=== PATIENT | female | born 1955 | race Caucasian/White ===

== ENCOUNTER → 2017-12-29 | Outpatient (CLI) | payer BC ==
[~2017-12-29] MED LIST: AMIT25TA9 PO; ATEN25TA; ATOR40TA; ENAL20TA PO; EST45C VG; FESO8TAB PO; IRBE75TA31; MECL-124 PO; PARO40TA47 PO; TOLT1TAB
--- NOTE | 2017-12-29 15:02 | Diagnostic Imaging Report ---
INDICATION: Routine screening. COMPARISON: 06/07/2016 and 03/24/2015. TECHNIQUE: Screening digital mammography was performed bilaterally with a Computer Aided Detection (CAD) system. FINDINGS: Both breasts are heterogeneously dense, limiting the sensitivity of mammography. The parenchymal pattern appears to be stable. An intramammary lymph node in the upper-outer left breast is stable. There are benign calcifications present bilaterally. There is a biopsy clip in the upper outer right breast. No mass or malignant appearing microcalcifications are seen. The axillae are unremarkable. IMPRESSION: No mammographic features suspicious for malignancy are identified. ACR BI-RADS Category 2: Benign findings. Result letter will be mailed to the patient. Note: At least 10% of breast cancer is not imaged by mammography. Dictated by: Dictated on workstation # [id number]
== END ==
LOC: RAD 10:26
PROVIDERS: ATTEND Nurse Practitioner Family
DX: Z12.31 Encounter for screening mammogram for malignant neoplasm of breast (principal)
CPT/HCPCS: 77067

== ENCOUNTER → 2018-09-18 | Outpatient (CLI) | payer MEDICARE, OTHER | LOC: CARD 10:53 | PROVIDERS: ATTEND Internal Medicine Cardiovascular Disease | DX: I10 Essential (primary) hypertension (principal); E78.1 Pure hyperglyceridemia; E78.2 Mixed hyperlipidemia; R07.9 Chest pain, unspecified | CPT/HCPCS: 93306 ==

== ENCOUNTER → 2018-09-24 | Outpatient (CLI) | payer MEDICARE, OTHER ==
[~2018-09-24] VITALS: Ht 157.5 cm; Wt 69.4 kg
[~2018-09-24] MED LIST changes: +CATHETER FLUSH 10 ML SYR IV PRN
[2018-09-24 10:07] VITALS: BP 156/90
[2018-09-24 10:11] VITALS: BP 161/81
[2018-09-24 10:19] VITALS: BP 162/93
[2018-09-24 10:23] VITALS: BP 154/97
--- NOTE | 2018-09-24 16:12 | STRESS TEST ---
DATE OF SERVICE: 09/24/2018 EXERCISE MYOVIEW STRESS TEST REPORT REFERRING PHYSICIAN: Dr. Yepez. Baseline heart rate is 68, baseline blood pressure 156/90. Baseline EKG is sinus rhythm with no ischemic changes. SUMMARY: The patient was injected with 10.0 mCi of technetium-99 Myoview and the resting images were obtained. Then, the patient started exercising with a baseline heart rate, blood pressure and EKG mentioned above. The patient was able to exercise for a total of 7 minutes on standard Bao protocol. With peak exercise level, the patient was injected with 30.2 mCi of technetium-99 Myoview. There were no EKG changes. Peak blood pressure was 198/110. During recovery, heart rate and blood pressure returned to baseline. EKG returned to baseline. The resting and stress images were reviewed and compared in the short axis, horizontal long axis, and vertical long axis views. Review of the images showed good radiotracer uptake with no significant ischemia or infarction. SSS is 1, SDS 1, and TID value 1.09. On the gated images, the left ventricle appeared to be in normal size with normal contractility. Calculated ejection fraction is 80%. CONCLUSION: 1. Good exercise tolerance for a total of 7 minutes on standard Bao protocol, achieving 98% of maximum expected heart rate, total of 8.5 METs. 2. Negative exercise stress test by EKG criteria. 3. Hypertensive response to exercise, returned to baseline during recovery. 4. No ischemia or infarction on SPECT images. 5. Normal left ventricular size with normal contractility. Calculated ejection fraction is 80%. CC: Dr. Yepez (distribution did not occur). Job ID: [id number] DocumentID: [id number] Dictated Date: 09/24/2018 12:44:34 [employer] Adf Consultant Date: 09/24/2018 16:11:30 Dictated By: JESUS RICHTER MD
== END ==
LOC: CARD 08:33
PROVIDERS: ATTEND Internal Medicine Cardiovascular Disease
DX: R07.9 Chest pain, unspecified (principal); E78.1 Pure hyperglyceridemia; E78.2 Mixed hyperlipidemia
CPT/HCPCS: 78452; 93017

== ENCOUNTER → 2019-01-02 | Outpatient (CLI) | payer MEDICARE, OTHER ==
[~2019-01-02] MED LIST changes: -CATHETER FLUSH 10 ML SYR IV PRN
--- NOTE | 2019-01-02 18:27 | Diagnostic Imaging Report ---
EXAMINATION: Cervical spine series. INDICATION: Neck pain. No reported injury. FINDINGS: There are severe multilevel degenerative endplate changes present throughout the cervical spine, most advanced at C5-C6 and C6-C7. There appears to be a degenerative retrolisthesis of C5 on C6. There is a slight anterolisthesis of C3 on C4 which appears secondary to facet arthropathy. There is a slight anterolisthesis of C7 on T1. The vertebral body heights appear maintained. There are no findings of abnormal prevertebral soft tissue thickening. There is no widening of the predental space. The odontoid views demonstrate no displacement of the lateral masses of C1. The lung apices appear clear. IMPRESSION: 1. Advanced multilevel cervical degenerative disc disease and facet arthropathy. There are both degenerative anterolistheses demonstrated at C3 on C4 and at C7 on T1 and a retrolisthesis of C5 on C6. The vertebral body heights appear maintained with no evidence of abnormal prevertebral soft tissue thickening. Dictated by: Dictated on workstation # [id number]
== END ==
LOC: RAD 15:00
PROVIDERS: ATTEND Nurse Practitioner Family
DX: M50.30 Other cervical disc degeneration, unspecified cervical region (principal); M46.82 Other specified inflammatory spondylopathies, cervical region; M43.13 Spondylolisthesis, cervicothoracic region
CPT/HCPCS: 72040

== ENCOUNTER → 2019-05-16 | Outpatient (CLI) | payer MEDICARE, OTHER ==
--- NOTE | 2019-05-16 16:59 | Diagnostic Imaging Report ---
PROCEDURE: US abdomen, limited. TECHNIQUE: Multiple realtime grayscale images were obtained over the abdomen in various projections. INDICATION: Left lower quadrant pain after workout. FINDINGS: Focal interrogation of the left lower quadrant was performed. There is no evidence of a hernia defect. There is no abnormal fluid collection or mass. IMPRESSION: Unremarkable left lower quadrant ultrasound. Dictated by: Dictated on workstation # [id number]
== END ==
LOC: RAD 15:50
PROVIDERS: ATTEND Nurse Practitioner Family
DX: R10.32 Left lower quadrant pain (principal)
CPT/HCPCS: 76705

== ENCOUNTER → 2019-06-11 | Outpatient (CLI) | payer MEDICARE, OTHER ==
--- NOTE | 2019-06-11 17:44 | Diagnostic Imaging Report ---
INDICATION: Routine screening. COMPARISON: Comparison is made with prior mammograms from 12/29/2017 and 06/07/2016. TECHNIQUE: 2-D and 3-D bilateral screening mammography was performed. The current study was also evaluated with a Computer Aided Detection (CAD) system. 3-D tomosynthesis was also performed and reviewed. FINDINGS: Both breasts remain heterogeneously dense, limiting the sensitivity of mammography. Scattered benign calcifications are identified bilaterally. The overall parenchymal pattern appears to be stable. No mass or malignant-appearing microcalcifications are seen. The axillae are unremarkable. IMPRESSION: No mammographic features suspicious for malignancy are identified. ACR BI-RADS Category 2: Benign findings. Result letter will be mailed to the patient. Note: At least 10% of breast cancer is not imaged by mammography. Dictated by: Dictated on workstation # [id number]
== END ==
LOC: RAD 13:48
PROVIDERS: ATTEND Nurse Practitioner Family
DX: Z12.31 Encounter for screening mammogram for malignant neoplasm of breast (principal)
CPT/HCPCS: 77067

== ENCOUNTER 2019-07-10 05:40 | Outpatient (CLI) | payer MEDICARE, OTHER ==
[~2019-07-10] VITALS: Ht 157.5 cm; Wt 70.4 kg
[2019-07-10] MEDS ORDERED: MV-M1TAB57 PO (15:31)
[2019-07-10] MEDS ORDERED: MIRA50TA PO (15:31)
[2019-07-10] MEDS ORDERED: UBID100C17 PO (15:31)
[2019-07-10] MEDS ORDERED: ENAL20TA PO (15:31)
[2019-07-10] MEDS ORDERED: MAGN250T2 PO (15:31)
[2019-07-10] MEDS ORDERED: EVOL140P SQ (15:31)
[2019-07-10] MEDS ORDERED: PARO20TA5 PO (15:31)
[2019-07-10] MEDS ORDERED: FISH400C PO (15:31)
[2019-07-10] MEDS ORDERED: MELO7.5T46 PO (15:31)
[2019-07-10] MEDS ORDERED: GLUC-219 PO (15:31)
[2019-07-10] MEDS ORDERED: ATEN25TA PO (15:31)
== END 2019-07-10 15:34 | disposition home or self-care (01) ==
LOC: PREOP 05:40
PROVIDERS: ATTEND Specialist
DX: Z01.818 Encounter for other preprocedural examination (principal)

== ENCOUNTER 2019-07-12 07:37 | Day surgery (SDC) | payer MEDICARE, OTHER ==
[~2019-07-12] VITALS: Ht 157.5 cm; Wt 70.4 kg
[~2019-07-12 07:37] MED LIST changes: +ATEN25TA PO; +EVOL140P SQ; +FISH400C PO; +GLUC-219 PO; +MAGN250T2 PO; +MELO7.5T46 PO; +MIRA50TA PO; +MV-M1TAB57 PO; +PARO20TA5 PO; +UBID100C17 PO
[2019-07-12 07:45] VITALS: BP 119/77
[2019-07-12] MEDS ORDERED: TIMOLOL MALEATE 0.5% 5 ML (TIMOPTIC) BTL OU PRN (07:45)
[2019-07-12] MEDS ORDERED: POVIDONE (BETADINE) OPHTH SOLN 5% 30 ML OP ONE (07:45)
[2019-07-12] MEDS ORDERED: MOXIFLOXACIN OPHTH SOLN 5 MG/ML 0.3 ML SYRINGE OP ONE (07:45)
[2019-07-12] MEDS ORDERED: LIDOCAINE PF 1% 2 ML AMP IR PRN (07:45)
[2019-07-12] MEDS: TETRACAINE 0.5% OPHTH SOLN 4 ML BTL (SINGLE DOSE ONLY) OU PRN ×4 (07:56→08:12)
[2019-07-12] MEDS: CYCLOPENTOLATE 1% (CYCLOGYL) 2 ML DROPS OP SCH ×3 (08:02→08:12)
[2019-07-12] MEDS: PHENYLEPHRINE 10% OPHTH (NEO-SYN) 5 ML BTL OU SCH ×3 (08:02→08:12)
--- NOTE | 2019-07-12 08:32 | Ophthalmologist Pre-Op Note ---
Pre-Operative Progress Note H&P Reviewed The H&P was reviewed, patient examined and no changes noted. Date H&P Reviewed: Jul 12, 2019 Time H&P Reviewed: 08:32 Pre-Op Dx Cataract, Right Eye ELIZABETH BELL MD Jul 12, 2019 08:32
[2019-07-12] MEDS ORDERED: MIDAZOLAM 2 MG/2 ML (VERSED) VIAL ONE (08:45)
[2019-07-12 09:00] VITALS: BP 119/77
[2019-07-12] MEDS ORDERED: acetaZOLAMIDE ER 500 MG CAP (DIAMOX SEQUELS) PO ONE (09:30)
--- NOTE | 2019-07-12 09:31 | Ophthalmology Operative Report ---
Cataract removal/placement IOL PREOPERATIVE DIAGNOSIS: Cataract Right Eye POSTOPERATIVE DIAGNOSIS: Cataract Right Eye PROCEDURE: Cataract removal and placement of posterior chamber implant, right eye SURGEON: eZus Bell ANESTHESIA: Topical with sedation COMPLICATIONS: None ESTIMATED BLOOD LOSS: Minimal DESCRIPTION OF PROCEDURE: After proper informed consent was obtained, the patient, a 64 female, was taken to the Operating Room and the right eye was anesthetized with tetracaine. The right eye was then prepped and draped in the usual manner. A wire lid speculum was placed. A paracentesis was made at the left hand position. Preservative free lidocaine was injected into the anterior chamber followed by viscoelastic. A clear corneal incision was made in the temporal position. A capsulorrhexis was preformed and the central nuclear and cortical material were removed. The posterior capsule was polished and Johnny 17.5 AU00T0 IOL was placed into the capsular bag. The residual viscoelastic was aspirated and balanced saline solution was injected into the anterior chamber. Moxifloxacin was injected into the anterior chamber. The wound was checked and found to be water tight. The patient tolerated the procedure well without complications. ZEUS BELL MD Jul 12, 2019 09:31
== END 2019-07-12 09:00 | disposition home or self-care (01) ==
LOC: SDC 07:37
PROVIDERS: ATTEND Specialist
DX: H25.11 Age-related nuclear cataract, right eye (principal); M19.90 Unspecified osteoarthritis, unspecified site; F41.9 Anxiety disorder, unspecified; E78.00 Pure hypercholesterolemia, unspecified

== ENCOUNTER 2019-09-11 09:30 | Outpatient (CLI) | payer MEDICARE, OTHER | END 2019-09-11 10:09 | disposition home or self-care (01) | LOC: PREOP 09:30 | PROVIDERS: ATTEND Specialist | DX: Z01.818 Encounter for other preprocedural examination (principal) ==

== ENCOUNTER 2019-09-13 06:06 | Day surgery (SDC) | payer MEDICARE, OTHER ==
[~2019-09-13] VITALS: Ht 157.5 cm; Wt 70.4 kg
[2019-09-13 06:10] VITALS: BP 122/82
[2019-09-13] MEDS ORDERED: LIDOCAINE PF 1% 2 ML AMP IR PRN (06:15)
[2019-09-13] MEDS ORDERED: TIMOLOL MALEATE 0.5% 5 ML (TIMOPTIC) BTL OU PRN (06:15)
[2019-09-13] MEDS ORDERED: MOXIFLOXACIN OPHTH SOLN 5 MG/ML 0.3 ML SYRINGE OP ONE (06:15)
[2019-09-13] MEDS ORDERED: POVIDONE (BETADINE) OPHTH SOLN 5% 30 ML OP ONE (06:15)
[2019-09-13] MEDS: TETRACAINE 0.5% OPHTH SOLN 4 ML BTL (SINGLE DOSE ONLY) OU PRN ×4 (06:17→06:47)
[2019-09-13] MEDS: CYCLOPENTOLATE 1% (CYCLOGYL) 2 ML DROPS OP SCH ×3 (06:30→06:47)
[2019-09-13] MEDS: PHENYLEPHRINE 10% OPHTH (NEO-SYN) 5 ML BTL OU SCH ×3 (06:30→06:47)
[2019-09-13] MEDS ORDERED: MIDAZOLAM 2 MG/2 ML (VERSED) VIAL ONE (07:17)
--- NOTE | 2019-09-13 07:22 | Ophthalmologist Pre-Op Note ---
Pre-Operative Progress Note H&P Reviewed The H&P was reviewed, patient examined and no changes noted. Date H&P Reviewed: Sep 13, 2019 Time H&P Reviewed: 07:22 Pre-Op Dx Cataract, Left Eye ELIZABETH BELL MD Sep 13, 2019 07:22 POS
--- NOTE | 2019-09-13 07:45 | Ophthalmology Operative Report ---
Cataract removal/placement IOL PREOPERATIVE DIAGNOSIS: Cataract Left Eye POSTOPERATIVE DIAGNOSIS: Cataract Left Eye PROCEDURE: Cataract removal and placement of posterior chamber implant, left eye SURGEON: Zeus Bell ANESTHESIA: Topical with sedation COMPLICATIONS: None ESTIMATED BLOOD LOSS: Minimal DESCRIPTION OF PROCEDURE: After proper informed consent was obtained, the patient, a 64 female, was taken to the Operating Room and the left eye was anesthetized with tetracaine. The left eye was then prepped and draped in the usual manner. A wire lid speculum was placed. A paracentesis was made at the left hand position. Preservative free lidocaine was injected into the anterior chamber followed by viscoelastic. A clear corneal incision was made in the temporal position. A capsulorrhexis was preformed and the central nuclear and cortical material were removed. The posterior capsule was polished and an Johnny 13.5 AU00T0 was placed into the capsular bag. The residual viscoelastic was aspirated and balanced saline solution was injected into the anterior chamber. Moxifloxacin was injected into the anterior chamber. The wound was checked and found to be water tight. The patient tolerated the procedure well without complications. ZEUS BELL MD Sep 13, 2019 07:45 POS
[2019-09-13 07:50] VITALS: BP 119/77
[2019-09-13] MEDS ORDERED: acetaZOLAMIDE ER 500 MG CAP (DIAMOX SEQUELS) PO ONE (08:00)
--- NOTE | 2019-09-13 13:01 | Anesthesia-General Post-Op ---
MAC Patient Condition Mental Status/LOC: Same as Preop Cardiovascular: Satisfactory Nausea/Vomiting: Absent Respiratory: Satisfactory Pain: Controlled Complications: Absent Post Op Complications Complications None Follow Up Care/Instructions Patient Instructions None needed. Anesthesiology Discharge Order Discharge Order Patient is doing well, no complaints, stable vital signs, no apparent adverse anesthesia problems. No complications reported per nursing. DAVID SHEN CRNA Sep 13, 2019 13:01 POS
== END 2019-09-13 07:50 | disposition home or self-care (01) ==
LOC: SDC 06:06
PROVIDERS: ATTEND Specialist
DX: H25.12 Age-related nuclear cataract, left eye (principal); I10 Essential (primary) hypertension; F41.9 Anxiety disorder, unspecified; M19.90 Unspecified osteoarthritis, unspecified site; E78.00 Pure hypercholesterolemia, unspecified; Z79.899 Other long term (current) drug therapy

== ENCOUNTER 2019-12-16 05:52 | Outpatient (CLI) | payer MEDICARE, OTHER ==
[~2019-12-16] VITALS: Ht 157 cm; Wt 70.4 kg
[2019-12-16] MEDS ORDERED: L.AC1CAP6 PO (15:45)
[2019-12-16] MEDS ORDERED: PANT40TA3 PO (15:45)
[2019-12-16] MEDS ORDERED: FESO8TAB PO (15:45)
== END 2019-12-16 15:48 | disposition home or self-care (01) ==
LOC: PREOP 05:52
PROVIDERS: ATTEND Internal Medicine
DX: Z01.818 Encounter for other preprocedural examination (principal)

== ENCOUNTER → 2021-05-05 | Outpatient (CLI) | payer MEDICARE, OTHER ==
[~2021-05-05] MED LIST changes: +ENAL20TA16 PO; -EVOL140P SQ; +EVOL140P3 SQ; +L.AC1CAP6 PO; +PANT40TA52 PO
--- NOTE | 2021-05-06 10:46 | Diagnostic Imaging Report ---
INDICATION: Routine screening. COMPARISON is made with prior mammogram 06/11/2019 and 12/29/2017. 2-D and 3-D bilateral screening mammography was performed with CAD. Both breasts are heterogeneously dense, limiting the sensitivity of mammography. Scattered benign appearing calcifications are noted bilaterally. No mass or malignant appearing microcalcifications are seen. Axillae are unremarkable. IMPRESSION: BI-RADS Category 2 No mammographic features suspicious for malignancy are identified. ACR BI-RADS Category 2: Benign findings. Result letter will be mailed to the patient. Note: At least 10% of breast cancer is not imaged by mammography. Dictated by: Dictated on workstation # [id number]
== END ==
LOC: RAD 14:56
PROVIDERS: ATTEND Nurse Practitioner Family
DX: Z12.31 Encounter for screening mammogram for malignant neoplasm of breast (principal)
CPT/HCPCS: 77063; 77067

== ENCOUNTER → 2021-11-08 | Outpatient (CLI) | payer MEDICARE, OTHER | LOC: CARD 09:30 | PROVIDERS: ATTEND Physician Assistant | DX: I35.1 Nonrheumatic aortic (valve) insufficiency (principal); I10 Essential (primary) hypertension | CPT/HCPCS: 93306 ==

== ENCOUNTER → 2022-05-10 | Outpatient (CLI) | payer MEDICARE, OTHER ==
[~2022-05-10] MED LIST changes: -MAGN250T2 PO; +MAGN250T31 PO
--- NOTE | 2022-05-10 15:14 | Diagnostic Imaging Report ---
INDICATION: Postmenopausal screening COMPARISON: 05/09/2011 FINDINGS: AP Spine L1-L4: [BMD (g/cm2): 0.941] [T-Score: -2.2] [Z-Score: -0.7] [BMD Previous: 1.068] [BMD % Change: -11.9] LT Hip Neck: [BMD (g/cm2): 0.697] [T-Score: -2.5] [Z-Score: -0.9] LT Hip Total: [BMD (g/cm2):0.727] [T-Score:-2.2] [Z-Score: -1.0] [BMD Previous: 0.824] [BMD % Change: -11.8] RT Hip Neck: [BMD (g/cm2):0.713] [T-Score:-2.3] [Z-Score:-0.8] RT Hip Total: [BMD (g/cm2):0.719] [T-score:-2.3] [Z-Score:-1.0] [BMD Previous:0.795] [BMD % Change:-9.6] *Indicates significant change from prior examination based on 95% confidence level. World Health Organization criteria for BMD interpretation classify patients as Normal (T-score at or above -1.0), Osteopenic (T-score between -1.0 and -2.5) or Osteoporotic (T-score at or below -2.5). LIMITATIONS AND MODIFICATION: None. FRACTURE RISK (FRAX SCORE): The ten year probability of (%): Major Osteoporotic Fracture: [22.1] Hip Fracture: [5.2] IMPRESSION: 1. Osteoporosis. 2. No significant change in bone mineral density since prior examination. 3. See below National Osteoporosis Foundation guidelines on when to potentially initiate pharmacologic therapy. Based on the National Osteoporosis Foundation Guidelines, pharmacologic treatment should be initiated in any of the following, unless clinical conditions suggest otherwise: * Any patient with prior fragility fracture of the hip or vertebrae. A spine fracture indicates 5X risk for subsequent spine fracture and 2X risk for subsequent hip fracture. * Osteoporosis (T-score <-2.5). * Postmenopausal women and men age 50 and older with low bone mass/osteopenia (T-score between -1.0 and -2.5) by DXA and 10-year major osteoporotic fracture greater than 20% or a 10-year probability of hip fracture greater than 3%. These fracture risks are supplied above in the FRAX score, if applicable. * Clinician judgement and/or patient preferences may indicate treatment for people with 10-year fracture probabilities above or below these levels. Dictated by: Dictated on workstation # [id number]
== END ==
LOC: RAD 12:30
PROVIDERS: ATTEND Physician Assistant
DX: Z13.820 Encounter for screening for osteoporosis (principal); M81.0 Age-related osteoporosis without current pathological fracture; Z78.0 Asymptomatic menopausal state
CPT/HCPCS: 77080

== ENCOUNTER → 2022-08-23 | Outpatient (CLI) | payer MEDICARE, OTHER ==
[~2022-08-23] MED LIST changes: +CATHETER FLUSH 10 ML SYR IV PRN; +IOHEXOL 350 MG/ML 100 ML (OMNIPAQUE 350) VIAL IV ONE; +NS 100 ML (IVPB) BAG IV ONE
[2022-08-23 11:32] LABS: HEMATOCRIT 41 % (35-52); HEMOGLOBIN 13.6 g/dL (11.5-16.0); MEAN CORPUSCULAR HEMOGLOBIN 31 pg (25-34); MEAN CORPUSCULAR HGB CONC 33 g/dL (32-36); MEAN CORPUSCULAR VOLUME 94 fL (80-99); MEAN PLATELET VOLUME 9.6 fL (9.0-12.2); PLATELET COUNT 249 10^3/uL (130-400)
[2022-08-23 11:49] LABS: BILIRUBIN,TOTAL 0.4 MG/DL (0.1-1.0); CALCIUM 9.4 MG/DL (8.5-10.1); CREATININE SERUM 0.74 MG/DL (0.60-1.30); POTASSIUM 4.3 MMOL/L (3.6-5.0); TOTAL PROTEIN 6.8 GM/DL (6.4-8.2)
--- NOTE | 2022-08-23 12:40 | Diagnostic Imaging Report ---
INDICATION: Nausea and vomiting, abdominal pain. TECHNIQUE: Multiple contiguous axial images were obtained through the abdomen and pelvis after the administration of intravenous contrast. All CT scans use one or more of the following dose optimizing techniques: automated exposure control, MA and/or KvP adjustment based on patient size and exam type or iterative reconstruction. There is no prior CT for comparison Visualized portions of the lung bases are clear except for calcified granuloma in the left lower lobe.. There were no pleural fluid collections. There is no free intraperitoneal air. The liver shows no focal lesion. Gallbladder is surgically absent. Spleen shows a few calcified granulomas otherwise normal appearance. The adrenals and pancreas are unremarkable. The kidneys bilaterally show some scattered areas of cortical scarring. There is a benign-appearing cyst in the left kidney. There is no retroperitoneal mass or adenopathy. There is no ascites or abnormal fluid collections. Visualized bowel loops show no overt obstruction. There is no pelvic mass or lymphadenopathy. The appendix appears normal. There is a minimal hiatal hernia. IMPRESSION: No acute abnormality visualized in the abdomen or pelvis. There are old granulomatous changes. There is some cortical scarring of both kidneys. There is a benign-appearing cyst left kidney. There is normal appendix. There is no sign of bowel obstruction or focal bowel wall thickening. Dictated by: Dictated on workstation # [id number]
== END ==
LOC: RAD 11:16
PROVIDERS: ATTEND Physician Assistant
DX: N28.1 Cyst of kidney, acquired (principal); Z87.09 Personal history of other diseases of the respiratory system
CPT/HCPCS: 36415; 74177; 80053; 85027; 86141

== ENCOUNTER → 2022-08-30 | Outpatient (CLI) | payer MEDICARE, OTHER ==
[~2022-08-30] MED LIST changes: -CATHETER FLUSH 10 ML SYR IV PRN; -IOHEXOL 350 MG/ML 100 ML (OMNIPAQUE 350) VIAL IV ONE; -NS 100 ML (IVPB) BAG IV ONE
--- NOTE | 2022-08-30 16:22 | Diagnostic Imaging Report ---
INDICATION: Routine screening. COMPARISON: 05/05/2021 and 06/11/2019. TECHNIQUE: 2D and 3D bilateral screening mammography was performed with CAD. FINDINGS: Both breasts are heterogeneously dense, limiting the sensitivity of mammography. There are scattered benign calcifications bilaterally. No mass or malignant-appearing microcalcifications are seen. The axillae are unremarkable. IMPRESSION: No mammographic features suspicious for malignancy are identified. ACR BI-RADS Category 2: Benign findings. Result letter will be mailed to the patient. Note: At least 10% of breast cancer is not imaged by mammography. Dictated by: Dictated on workstation # [id number]
== END ==
LOC: RAD 13:45
PROVIDERS: ATTEND Physician Assistant
DX: Z12.31 Encounter for screening mammogram for malignant neoplasm of breast (principal)
CPT/HCPCS: 77063; 77067